=== PATIENT | female | born 1935 | race Caucasian/White ===

== ENCOUNTER 2017-12-29 12:05 | Emergency (ER) | payer MEDICARE, OTHER ==
--- NOTE | 2017-12-29 13:03 | RAD ---
RIGHT KNEE FOUR VIEWS: HISTORY: Right knee pain. COMPARISON: 04/17/2015 FINDINGS: Osteopenia is again seen. No fracture, dislocation, or bony destruction is identified. Joint space narrowing in the medial tibial femoral compartment is again noted. No osteophytosis is seen. No hunter nt effusion is identified. POS: [facility]
== END 2017-12-29 13:03 | disposition left against medical advice (07) ==
LOC: ERS 12:05
DX: Z53.21 Procedure and treatment not carried out due to patient leaving prior to being seen by health care provider (principal)

== ENCOUNTER 2017-12-29 13:36 | Emergency (ER) | payer MEDICARE, OTHER | END 2017-12-29 14:58 | disposition home or self-care (01) | LOC: SCSER 13:36 | DX: S83.511A Sprain of anterior cruciate ligament of right knee, initial encounter (principal); G43.909 Migraine, unspecified, not intractable, without status migrainosus; F41.9 Anxiety disorder, unspecified; Z79.899 Other long term (current) drug therapy; X50.1XXA Overexertion from prolonged static or awkward postures, initial encounter | CPT/HCPCS: 99284 ==